=== PATIENT | male | born 1940 | race Caucasian/White ===

== ENCOUNTER 2021-06-26 09:54 | Emergency (ER) | payer MEDICARE, OTHER ==
[2021-06-26 11:35] LABS: BASOPHIL 0.3 % (0-2); EOSINOPHIL 0.5 % (0-7); HCT 36.3 % (42.0-52.0); HGB 11.7 g/dl (13.2-18.0); LYMPHOCYTE 12.2 % (15-48); MCH 30.3 pg (25.0-31.0); MCHC 32.2 g/dL (32.0-36.0); MPV 10.2 fL (6.0-9.5); NEUTROPHIL 80.5 % (41-80); NRBC 0; PLT 132 K/uL (150-400); RBC 3.86 M/uL (4.70-6.00); RDW 11.9 % (11.5-14.0); WBC 7.3 K/uL (4.0-10.5)
[2021-06-26 12:08] LABS: MAGNESIUM 2.1 mg/dL (1.8-2.4); POTASSIUM 4.3 mmol/L (3.5-5.1)
[2021-06-26] MEDS ORDERED: AZITHROMYCIN250 MG PO (12:22)
[2021-06-26] MEDS ORDERED: AMOX TR-K CLV1 EAC4 PO (12:22)
== END 2021-06-26 12:36 | disposition home or self-care (01) ==
LOC: FER 09:54
PROVIDERS: Internal Medicine
DX: S01.01XA Laceration without foreign body of scalp, initial encounter (principal); S60.512A Abrasion of left hand, initial encounter; J18.9 Pneumonia, unspecified organism; Z23 Encounter for immunization; W18.09XA Striking against other object with subsequent fall, initial encounter; Y92.009 Unspecified place in unspecified non-institutional (private) residence as the place of occurrence of the external cause
CPT/HCPCS: 36415; 70450; 71045; 73522; 73610; 80048; 83735; 84145; 84484; 85025; 90471; 90715; 93005; J2001